=== PATIENT | female | born 1945 | race Caucasian/White ===

== ENCOUNTER 2023-06-22 10:38 | Outpatient (CLI) | payer MEDICARE, BC | END 2023-06-22 10:39 | disposition critical access hospital (66) | LOC: EMS 10:38 | DX: R41.0 Disorientation, unspecified (principal); R44.3 Hallucinations, unspecified; M53.3 Sacrococcygeal disorders, not elsewhere classified | CPT/HCPCS: A0425; A0429 ==

== ENCOUNTER 2023-06-22 10:58 | Emergency (ER) | payer MEDICARE, BC ==
--- NOTE | 2023-06-22 11:11 | ED Physician Documentation ---
PD HPI ALTERED MENTAL STATUS - Stated complaint Stated Complaint: CONFUSION - History obtained from History obtained from: Patient, Family (son reporting symptoms to EMS.), EMS - History of Present Illness Timing - onset: How many days ago (few) Timing - duration: Days (few) Timing - details: Gradual onset, Still present Quality / character: Confused, Disoriented, Agitated (at times, per daughter.) Associated symptoms: No: Fever, Headache, Dyspnea, Cough Contributing factors: No: Recent med change, Recent illness, Recent injury Basline status: Ambulatory, Independent, Disoriented (to time and circumstances often per daughter) Recently seen: Not recently seen Review of Systems Constitutional: denies: Fever Throat: denies: Sore throat Cardiac: denies: Chest pain / pressure Respiratory: denies: Cough GI: denies: Abdominal Pain, Vomiting, Diarrhea Neurologic: denies: Focal weakness, Near syncope, Headache, Head injury PD PAST MEDICAL HISTORY - Past Medical History Cardiovascular: Hypertension Respiratory: None Neuro: Dementia (not formal Dx, but daughter describres pt with gradual decline in cognition and self care ability. Pt states she dresses self, prepares foods, mobilizes in house. ) - Present Medications Home Medications: Ambulatory Orders Medication Instructions Recorded Confirmed Ibuprofen [Advil] 400 mg PO Q6HR PRN 06/22/23 06/22/23 Magnesium Oxide [Mag Ox] 400 mg PO DAILY #20 tablet 06/22/23 Potassium Bicarbonate 25 meq PO DAILY #20 tablet 06/22/23 [K-Effervescent] QUEtiapine [SEROquel] 25 mg PO QPM #10 tablet 06/22/23 hydroCHLOROthiazide [Hydrodiuril] 25 mg PO DAILY 06/22/23 06/22/23 - Allergies Allergies/Adverse Reactions: Allergies Allergy/AdvReac Type Severity Reaction Status Date / Time Unable to Assess Allergy Verified 06/22/23 11:05 - Living Situation Living Situation: reports: Alone (but with children in the area who check her daily and assist daily. ) Living Arrangement: reports: At home PD ED PE NORMAL - Vitals Vital signs reviewed: Yes - General General: No acute distress, Well developed/nourished. No: Alert and oriented X 3 (person and place, not month. She was not able to state what the family was concerned about to have EMS bring her here. ) - HEENT HEENT: Atraumatic - Neck Neck: Supple, no meningeal sign, No adenopathy - Cardiac Cardiac: RRR, No murmur - Respiratory Respiratory: Clear bilaterally - Abdomen Abdomen: Soft, Non tender - Derm Derm: Normal color, Warm and dry - Extremities Extremities: No tenderness to palpate, Normal ROM s pain, No edema, No calf tenderness / cord - Neuro Neuro: spring fitter 2-12 intact, No motor deficit, No sensory deficit, Normal speech Eye Opening: Spontaneous Motor: Obeys Commands Verbal: Oriented GCS Score: 15 Results - Vitals Vitals: Vital Signs - 24 hr 06/22/23 06/22/23 06/22/23 11:05 11:40 14:42 Temperature 36.2 C L Heart Rate 74 68 71 Respiratory 14 14 16 Rate Blood Pressure 137/92 H 137/92 H 156/85 H O2 Saturation 100 100 100 06/22/23 15:23 Temperature 36 C L Heart Rate 77 Respiratory 20 Rate Blood Pressure 139/60 H O2 Saturation 100 Oxygen O2 Source Room air - EKG (time done) 11:343 EKG releavant findings:: EKG personally interpreted by author of this note. Relevant findings are: Rate: Rate (enter#) (60) Rhythm: NSR [place]: Normal Intervals: Normal NM QRS: Normal Ischemia: Normal ST segments. No: ST elevation c/w ischemia, ST depression - Labs Labs: Laboratory Tests 06/22/23 06/22/23 06/22/23 11:25 11:25 13:05 WBC 4.0 L RBC 4.43 Hgb 14.1 Hct 40.6 MCV 91.6 MCH 31.8 H MCHC 34.7 RDW 12.7 Plt Count 156 MPV 12.1 H Neut # (Auto) 2.9 Lymph # (Auto) 0.8 [place] # (Auto) 0.3 Eos # (Auto) 0.0 Baso # (Auto) 0.0 Absolute Nucleated RBC 0.00 Nucleated RBC % 0.0 Sodium 134 L Potassium 2.9 L Chloride 96 L Carbon Dioxide 28 Anion Gap 10.0 BUN 15 Creatinine 0.7 Estimated GFR (MDRD) 81 L Glucose 103 Calcium 9.1 Magnesium 1.5 L Total Bilirubin 0.6 AST 34 ALT 15 Alkaline Phosphatase 41 L Total Protein 7.3 Albumin 4.2 Globulin 3.1 Albumin/Globulin Ratio 1.4 Lipase 21 Vitamin B12 284 Urine Color YELLOW Urine Clarity CLEAR Urine pH 6.0 Ur Specific [place] 1.020 Urine Protein NEGATIVE Urine Glucose (UA) NEGATIVE Urine Ketones TRACE Urine Occult Blood NEGATIVE Urine Nitrite NEGATIVE Urine Bilirubin NEGATIVE Urine Urobilinogen 0.2 (NORMAL) Ur Leukocyte Esterase NEGATIVE Ur Microscopic Review NOT INDICATED Urine Culture Comments NOT INDICATED - Rads (name of study) head CT Relevant Findings:: Prelim report reviewed (no acute intracranial process. ), EMP independent interpretation of test chest xray Relevant Findings:: Prelim report reviewed (no acute process), EMP independent interpretation of test PD Medical Decision Making - ED course Complexity details: reviewed results, re-evaluated patient (unfortunately, does sound like a slow decline in cognitive memory and function per daughter description with increased rate of change last weeks/months, and more so the past few days. No apparent acute illness/etc to accuount for it. ), considered differential (reported more confusion and restless for days to weeks, gradually increased. No recent illness, falls, head ache/injury. No recent change in meds. ), d/w patient, d/w family (daughter, who comes to ER to give info and be with pt. ) ED course: Pt does have low K and Mag, and may be contributing to current worse cognition. Daughter states the pt has been getting more restless in evenings and not sleep ing well. Sometimes agitated in evening. No falling. I talked with pt and daughter that there isn't really hospitali admission criteria at this time. Given Ka dn Mag repletion doses in ER. Pt is pleasant, oriented, and able to state that she feels capable at her home. She does not want to be in hospital nor assisted living. Daughter states the pt's children are meeting together in next few days to discuss options of care (home aides, assisted living, SNF) for pt. Our high school social studies teacher is not still in hospital at this time to give them info numbers to call for home . They can call back Saturday to get resource numbers if needed. the daugher did ask about Rx to help pt sleep at night. Pt agreeable. Can give low dose med such as Seroquel (which has been used by [facility] in other cases with similar context). To follow up with PCP Saturday. Return if needed. Departure - Departure Disposition: 01 Home, Self Care Clinical Impression: Confused but orients easily, Hypokalemia, Hypomagnesemia Dementia Qualifiers: Dementia type: unspecified type Condition: Stable Record reviewed to determine appropriate education?: Yes Prescriptions: Potassium Bicarbonate [K-Effervescent] 25 meq PO DAILY #20 tablet Magnesium Oxide [Mag Ox] 400 mg PO DAILY #20 tablet QUEtiapine [SEROquel] 25 mg PO QPM #10 tablet Comments: The potassium and magnesium levels are low. Hard to know how much is contributing to the increased confusion. We gave some IV fluids here for good hydration. We did give some IV potassium and magnesium. I would suggest a oral supplement for the next couple of weeks for both. Continue other usual medications. Follow-up with your primary care Saturday if you need to start initiating home health aides or placement at a higher care level. Potentially they might prescribe some medication to help with some of the symptoms. See how well you are over the next few days. Return as needed. You can use Seroquel low dose at night to hlep with sleep and can help with some agitation during the day. This is used commonly in setting of dementia with agitation. Follow up with your PCP to see what their preference is for ongoing meds. I sent your scripts to [facility] pharmacy. Forms: PCP List Discharge Date/Time: 06/22/23 16:37
[2023-06-22 11:18] VITALS: O2SAT 100
--- NOTE | 2023-06-22 11:30 | XRAY Report ---
PROCEDURE: Chest 1 View X-Ray INDICATIONS: cough for several days TECHNIQUE: One view of the chest was acquired. COMPARISON: None. FINDINGS: Surgical changes and devices: None. Lungs and pleura: No pleural effusions or pneumothorax. Lungs are clear. Mediastinum: Mediastinal contours appear normal. Heart size is normal. Bones and chest wall: No suspicious bony lesions. Overlying soft tissues appear unremarkable. IMPRESSION: No acute process. Reviewed by: Coby Segura MD on 06/22/2023 11:28 AM PDT Approved by: Coby Segura MD on 06/22/2023 11:28 AM PDT Station ID: [id number]
[2023-06-22 11:41] LABS: ALBUMIN 4.2 g/dL (3.2-5.5); ALBUMIN/GLOBULIN RATIO 1.4 (1.0-2.2); BILIRUBIN,TOTAL 0.6 mg/dL (0.2-1.0); CALCIUM 9.1 mg/dL (8.5-10.3); CREATININE 0.7 mg/dL (0.6-1.3); MAGNESIUM 1.5 mg/dL (1.7-2.3); POTASSIUM 2.9 mmol/L (3.5-4.5); TOTAL PROTEIN 7.3 g/dL (6.4-8.9)
[2023-06-22 11:55] LABS: HCT - HEMATOCRIT 40.6 % (37.0-47.0); HGB - HEMOGLOBIN 14.1 g/dL (12.0-16.0); LYMPHOCYTES # (AUTO) 0.8 10^3/uL (1.5-3.5); LYMPHOCYTES % (AUTO) 19.7 %; MEAN CORPUSCULAR HEMOGLOBIN 31.8 pg (27.0-31.0); MEAN CORPUSCULAR HGB CONC 34.7 g/dL (32.0-36.0); MEAN CORPUSCULAR VOLUME 91.6 fL (81.0-99.0); MEAN PLATELET VOLUME 12.1 fL (7.9-10.8); MONOCYTES # (AUTO) 0.3 10^3/uL (0.0-1.0); MONOCYTES % (AUTO) 7.7 %; NEUTROPHILS # (AUTO) 2.9 10^3/uL (1.5-6.6); NEUTROPHILS % (AUTO) 72.4 %; PLT - PLATELET COUNT 156 10^3/uL (130-450); RED BLOOD COUNT 4.43 10^6/uL (4.20-5.40); RED CELL DISTRIBUTION WIDTH 12.7 % (12.0-15.0)
[2023-06-22] MEDS ORDERED: MAGNESIUM SULFATE 2 GRAM 2 GM/50 ML BAG IV ONE (12:50)
[2023-06-22] MEDS ORDERED: SODIUM CHLORIDE 0.9% 1,000 ML IV STA (12:50)
[2023-06-22] MEDS ORDERED: POTASSIUM CHLOR 10 MEQ/100 ML 10 MEQ/100 ML BAG IV ONE (12:50)
[2023-06-22] MEDS ORDERED: POTASSIUM BICARB 25 MEQ TABLET PO STA (12:50)
[2023-06-22 13:23] LABS: BILIRUBIN,URINE NEGATIVE (NEGATIVE); GLUCOSE, URINE (UA) NEGATIVE (NEGATIVE); KETONES,URINE (UA) TRACE mg/dL (NEGATIVE); LEUKOCYTE ESTERASE, URINE NEGATIVE (NEGATIVE); NITRITE,URINE NEGATIVE (NEGATIVE); OCCULT BLOOD,URINE NEGATIVE (NEGATIVE); PROTEIN,URINE NEGATIVE (NEGATIVE); UROBILINOGEN,URINE 0.2 (NORMAL) E.U./dL (NORMAL)
[2023-06-22 13:24] LABS: CLARITY,URINE CLEAR (CLEAR)
--- NOTE | 2023-06-22 15:05 | CT Report ---
PROCEDURE: HEAD WO INDICATIONS: confusion several days TECHNIQUE: Noncontrast 4.5 mm thick angled axial sections acquired from the foramen magnum to the vertex. For r adiation dose reduction, the following was used: automated exposure control, adjustment of mA and/or kV according to patient size. COMPARISON: None. FINDINGS: Image quality: Excellent. CSF spaces: Basal cisterns are patent. No extra-axial fluid collections. Ventricles are normal in size and shape. Brain: No midline shift. No intracranial masses or hemorrhage. Pitts-white matter interface is norm al. Skull and face: Calvarium and visualized facial bones are intact, without suspicious lesions. Sinuses: Visualized sinuses and mastoids are clear. IMPRESSION: No acute intracranial abnormality. Reviewed by: Coby Segura MD on 06/22/2023 3:04 PM PDT Approved by: Coby Segura MD on 06/22/2023 3:04 PM PDT Station ID: [id number]
[2023-06-22 15:30] VITALS: BP 139/60
== END 2023-06-22 16:37 | disposition home or self-care (01) ==
LOC: EDUNIT# → ED 10:58
DX: E87.6 Hypokalemia (principal); E83.42 Hypomagnesemia; F03.90 Unspecified dementia, unspecified severity, without behavioral disturbance, psychotic disturbance, mood disturbance, and anxiety; I10 Essential (primary) hypertension; Z79.899 Other long term (current) drug therapy
CPT/HCPCS: 36415; 70450; 71045; 80053; 81003; 82607; 83690; 83735; 85025; 93005; 96365; 96366; 96368; 99284; A9270; 81001; 87086

== ENCOUNTER 2023-06-24 13:42 | Outpatient (CLI) | payer MEDICARE, BC | END 2023-06-24 13:43 | disposition short-term general hospital (02) | LOC: EMS 13:42 | DX: R41.82 Altered mental status, unspecified (principal); R39.89 Other symptoms and signs involving the genitourinary system | CPT/HCPCS: A0425; A0429; A0888 ==

== ENCOUNTER 2024-03-13 10:09 | Outpatient (CLI) | payer MEDICARE, BC | END 2024-03-13 23:59 | disposition critical access hospital (66) | LOC: EMS 10:09 | DX: M54.50 Low back pain, unspecified (principal); M54.2 Cervicalgia; W10.9XXA Fall (on) (from) unspecified stairs and steps, initial encounter; Y92.099 Unspecified place in other non-institutional residence as the place of occurrence of the external cause | CPT/HCPCS: A0425; A0429 ==

== ENCOUNTER 2024-03-13 10:21 | Emergency (ER) | payer MEDICARE, BC ==
--- NOTE | 2024-03-13 10:33 | ED Physician Documentation ---
PD HPI BACK PAIN - Stated complaint Stated Complaint: FALL/LOW BACK PX - History obtained from History obtained from: EMS - Additional information Additional information: 78-year-old woman with history of dementia at an adult family home fell down 6 steps today. She does not recall the accident but that is reportedly her baseline. Paramedics gave me the history. Asking the patient, she says she was up on a ladder helping some neighbors. Intermittently complaining of low back pain and neck pain without obvious physical exam findings for the paramedics. Per the paramedics she was found sitting at the bottom of the stairs on her rear end. PD PAST MEDICAL HISTORY - Past Medical History Cardiovascular: Hypertension Respiratory: None Neuro: Dementia (not formal Dx, but daughter describres pt with gradual decline in cognition and self care ability. Pt states she dresses self, prepares foods, mobilizes in house. ) Endocrine/Autoimmune: None GI: None TIRE RETREADER: None : None HEENT: None Psych: None Musculoskeletal: None Derm: None - Past Surgical History Past Surgical History: Yes /TIRE RETREADER: section - Present Medications Home Medications: Ambulatory Orders Medication Instructions Recorded Confirmed Amox/Clav 875/125 [Augmentin 1 tablet PO Q12H 03/13/24 03/13/24 875/125 Tab] Docusate Sodium 100Mg Capsule 100 mg PO DAILY 03/13/24 03/13/24 [Colace 100Mg Capsule] Melatonin 3 mg PO DAILY PM 03/13/24 03/13/24 Triamterene/Hydrochlorothiazid 1 each PO DAILY 03/13/24 03/13/24 [Triamterene-Hctz 37.5-25 mg Cp] - Allergies Allergies/Adverse Reactions: Allergies Allergy/AdvReac Type Severity Reaction Status Date / Time No Known Drug Allergies Allergy Verified 03/13/24 10:36 - Social History Does the pt smoke?: No Smoking Status: Never smoker Does the pt drink ETOH?: No Does the pt have substance abuse?: No - Immunizations Immunizations are current?: Yes PD ED PE NORMAL - Vitals Vital signs reviewed: Yes - General General: No acute distress, Other (She is alert and oriented to person but not place time or events.) - HEENT HEENT: PERRL, EOMI - Neck Neck: No bony TTP - Cardiac Cardiac: RRR, No murmur - Respiratory Respiratory: No respiratory distress, Clear bilaterally - Abdomen Abdomen: Normal bowel sounds, Soft, Non tender - Back Back: No CVA TTP, Other (I am not able to reproduce any tenderness of the lumbar spine) - Extremities Extremities: Other (All major joints were ranged and palpated without tenderness) - Neuro Eye Opening: Spontaneous Motor: Obeys Commands Verbal: Confused GCS Score: 14 Results - Vitals Vitals: Vital Signs - 24 hr 03/13/24 10:27 Temperature 36.3 C L Heart Rate 93 Respiratory 20 Rate Blood Pressure 159/83 H O2 Saturation 98 Oxygen O2 Source Room air - Rads (name of study) CT Relevant Findings:: Final report received (CT of the head, cervical spine, chest, and lumbar spine show no trauma. She does have incidental findings including DDD and atelectasis, emphysema, and thyroid abnormality needing outpatient ultrasound.), EMP independent interpretation of test PD Medical Decision Making - ED course ED course: 78-year-old woman from an [facility] presents after a fall with concern for injuries. No clear injury on exam but given advanced age and dementia CTs were done extensively and were negative for traumatic findings. She does have the thyroid nodule needing outpatient workup and this was mentioned in the discharge instru ctions. I did call and leave a voicemail for the daughter to update without an immediate call back. Departure - Departure Disposition: 01 Home, Self Care Clinical Impression: Fall Qualifiers: Encounter type: initial encounter Qualified Code(s): W19.XXXA - Unspecified fall, initial encounter Back pain Qualifiers: Back pain location: low back pain Chronicity: acute Back pain laterality: unspecified Sciatica presence: without sciatica Qualified Code(s): M54.50 - Low back pain, unspecified Condition: Good Record reviewed to determine appropriate education?: Yes Instructions: ED Mechanical Fall Comments: CTs of the head, cervical spine, chest and lumbar spine were negative for acute traumatic findings. She did have incidental findings, most notably a thyroid nodule which needs a nonemergent outpatient ultrasound to be mentioned to her primary care physician. Return for new or worsening symptoms.
[2024-03-13 10:39] VITALS: BP 159/83; O2SAT 98
--- NOTE | 2024-03-13 13:17 | CT Report ---
PROCEDURE: Cervical Spine WO INDICATIONS: fall TECHNIQUE: Noncontrast 3 mm thick sections acquired from the skull base to the T4 level. Sagittal and coronal r eformats were then constructed. For radiation dose reduction, the following was used: automated exp osure control, adjustment of mA and/or kV according to patient size. COMPARISON: None. FINDINGS: Image quality: Excellent. Bones: No fractures or dislocations. 2 to 3 mm anterolisthesis of C3 on C4 and C4 on C5 is seen. De generative endplate changes, loss of disc height and bilateral uncovertebral hypertrophic changes are noted throughout cervical spine most notably at C5-6 and C6-7 levels causing [id number] centra l canal stenosis and mild bilateral bony foraminal stenosis. Visualized superior ribs are intact. Soft tissues: Prevertebral soft tissues are normal in thickness. No paravertebral hematomas. No ap ical pneumothoraces. IMPRESSION: No acute, displaced fracture or traumatic subluxation. Mild to moderate degenerative disc disease throughout cervical spine as above. Reviewed by: Kirk Paez MD on 03/13/2024 1:16 PM PDT Approved by: Kirk Paez MD on 03/13/2024 1:16 PM PDT Station ID: [id number]
--- NOTE | 2024-03-13 13:23 | CT Report ---
PROCEDURE: Head WO INDICATIONS: fall TECHNIQUE: Noncontrast 4.5 mm thick angled axial sections acquired from the foramen magnum to the vertex. For r adiation dose reduction, the following was used: automated exposure control, adjustment of mA and/or kV according to patient size. COMPARISON: 06/22/2023 FINDINGS: Image quality: Excellent. CSF spaces: Basal cisterns are patent. No extra-axial fluid collections. The ventricles are symmet que in size and shape. Brain: No intracranial bleeds or masses. There is cerebral volume loss for age, with resultant vent ricular and sulcal prominence. There are periventricular and deep white matter chronic small vessel ischemic changes. There is intracranial internal carotid artery atherosclerosis. Skull and face: Calvarium and visualized facial bones appear intact, without suspicious lesions. Sinuses: Visualized sinuses and mastoids are clear. IMPRESSION: No acute intracranial pathology. Reviewed by: Kirk Paez MD on 03/13/2024 1:21 PM PDT Approved by: Kirk Paez MD on 03/13/2024 1:21 PM PDT Station ID: [id number]
--- NOTE | 2024-03-13 13:36 | CT Report ---
PROCEDURE: Chest WO INDICATIONS: fall TECHNIQUE: A CT scan of the chest was performed. Intravenous contrast media was not administered. Images were re corded and evaluated at appropriate window settings. Reformats: axial MIP of the chest, coronal and s agittal. For radiation dose reduction, the following was used: automated exposure control, adjustment of mA and/or kV according to patient size. COMPARISON: . Chest radiograph dated 06/22/2023 FINDINGS: Image quality: Diagnostic. Chest wall and lower neck: Asymmetrically enlarged right thyroid lobe is seen with heterogeneous enha ncement.. No axillary or supraclavicular adenopathy by size. Lungs and pleura: There is biapical scarring. Calcified granuloma in lateral left apex is seen. Moder ate centrilobular emphysema. Dependent atelectasis are noted in posterior aspect of bilateral lung fi elds. No focal infiltrate.. No pleural effusions. No pneumothorax. No suspicious pulmonary nodules w hich require follow up. Mediastinum: Heart size is enlarged. No pericardial effusion. Mild to moderate coronary artery athero sclerotic calcifications are seen. No large vessel abnormality. No mediastinal adenopathy by size cri teria. Bones: No aggressive osseous abnormality. Degenerative disc disease throughout thoracic spine is seen . No displaced rib fractures. Upper Abdomen: Unremarkable suggestion of tiny cysts in anterior and posterior segments of right hepa tic lobe measures up to 6 mm in size series 2 image 77. . IMPRESSION: 1. Dependent atelectasis in posterior aspect of bilateral lung sheldon. Biapical scarring and moderate centrilobular emphysema. No focal infiltrate, pleural effusion or pneumothorax. No displaced rib fra ctures. 2. No mediastinal hematoma. Cardiomegaly, no pericardial effusion. Mild to moderate coronary artery a therosclerotic calcifications. 3. Asymmetrically enlarged right thyroid lobe which could represent nodular goiter. Outpatient ultras ound thyroid follow-up is. Reviewed by: Kirk Paez MD on 03/13/2024 1:35 PM PDT Approved by: Kirk Paez MD on 03/13/2024 1:35 PM PDT Station ID: [id number]
--- NOTE | 2024-03-13 13:39 | CT Report ---
PROCEDURE: Lumbar Spine WO INDICATIONS: fall TECHNIQUE: Noncontrast 3 mm thick sections acquired from the T12 level to the sacrum. Sagittal and coronal refo rmats were constructed. For radiation dose reduction, the following was used: automated exposure co ntrol, adjustment of mA and/or kV according to patient size. COMPARISON: None. FINDINGS: Image quality: Excellent. Bones: There is normal bony alignment. No acute vertebral body compression fractures. No suspiciou s lytic or blastic bony lesions. Central spinal caliber is of normal overall caliber. No pars defec ts. T12-L1: Degenerative endplate changes are seen. Mild central disc bulge is seen. No significant centr al canal stenosis or neural foraminal narrowing. L1-L2: Unremarkable. L2-L3: Degenerative endplate changes are seen. Broad-based disc bulge and bilateral facet arthrosi s with mild central canal stenosis, mild right-sided neural foraminal narrowing is also seen. L3-L4: Loss of disc height and degenerative endplate changes are noted. Broad-based disc bulge and bilateral facet arthrosis causing mild central canal stenosis and moderate left-sided neural foramina l narrowing. L4-L5: Loss of disc height and degenerative endplate changes. Broad-based disc bulge and bilateral facet arthrosis with moderate central canal stenosis and right-sided neural foraminal narrowing. L5-S1: Loss of disc height and degenerative endplate changes are seen. Broad-based disc bulge and b ilateral facet arthrosis with mild central canal stenosis and moderate right worse than left bilatera l neural foraminal. Soft tissues: No retroperitoneal masses or hematomas. Visualized aorta is normal in caliber. Modera te abdominal aortic atherosclerotic calcifications are seen. IMPRESSION: 1. No acute lumbar spine compression fracture or spondylolisthesis. No suspicious bony lesions. 2. Degenerative disc disease throughout lumbar spine causing various degrees of central canal stenosi s and bilateral neural foraminal narrowing as above. 3. No gross paraspinous soft tissue abnormalities. Reviewed by: Kirk Paez MD on 03/13/2024 1:38 PM PDT Approved by: Kirk Paez MD on 03/13/2024 1:38 PM PDT Station ID: [id number]
== END 2024-03-13 14:33 | disposition home or self-care (01) ==
LOC: EDUNIT# → ED 10:21
DX: M54.50 Low back pain, unspecified (principal); M54.2 Cervicalgia; W10.8XXA Fall (on) (from) other stairs and steps, initial encounter; I10 Essential (primary) hypertension; F03.90 Unspecified dementia, unspecified severity, without behavioral disturbance, psychotic disturbance, mood disturbance, and anxiety
CPT/HCPCS: 99284